=== PATIENT | female | born 1940 | race Two or more races ===

== ENCOUNTER → 2017-12-10 | Outpatient (CLI) | payer MEDICARE, MEDICAID ==
--- NOTE | 2017-12-10 12:22 | RADIOLOGY REPORT (SQ) ---
EXAM DESCRIPTION: CHEST PA/LATERAL COMPLETED DATE/TIME: 12/10/2017 11:57 am REASON FOR STUDY: OTH SYMPTOMS AND SIGNS INVOLVING THE CIRC AND RESP SYSTEMS COMPARISON: CT chest 04/13/2013 Chest films 07/19/2014, 12/14/2012 EXAM PARAMETERS: NUMBER OF VIEWS: two views TECHNIQUE: Digital Frontal and Lateral radiographic views of the chest acquired. RADIATION DOSE: NA LIMITATIONS: none FINDINGS: LUNGS AND PLEURA: No pleural effusion or pneumothorax. Increased interstitial markings around the periphery of both lungs likely chronic pulmonary fibrosis. This has progressed since 2013. No gross acute infiltrates MEDIASTINUM AND HILAR STRUCTURES: Large retrocardiac hiatal hernia containing the majority of the sto mach HEART AND VASCULAR STRUCTURES: Mild cardiomegaly with enlarged main pulmonary artery, suggestive of p ulmonary hypertension BONES: Osteoporosis with chronic appearing compression deformities at T12 and L1 HARDWARE: None in the chest. OTHER: No other significant finding. IMPRESSION: Increased interstitial markings around the periphery of both lungs likely progressive pu lmonary fibrosis since 2013 No acute infiltrates. No pleural effusion. No pneumothorax. Mild cardiomegaly with enlarged main pulmonary artery, suggests pulmonary hypertension TECHNICAL DOCUMENTATION: JOB ID: [id number] [employer]- All Rights Reserved
== END ==
LOC: OD 11:38
PROVIDERS: ATTEND Family Medicine
DX: R09.89 Other specified symptoms and signs involving the circulatory and respiratory systems (principal)
CPT/HCPCS: 71046